=== PATIENT | male | born 1995 | race Caucasian/White ===

== ENCOUNTER 2018-03-24 22:31 | Emergency (ER) | payer BC, OTHER ==
[~2018-03-24] VITALS: Ht 182.9 cm; Wt 93.4 kg
[2018-03-24 22:43] VITALS: BP 115/64
== END 2018-03-25 01:02 | disposition home or self-care (01) ==
LOC: ER 22:34
DX: S62.334A Displaced fracture of neck of fourth metacarpal bone, right hand, initial encounter for closed fracture (principal); W21.01XA Struck by football, initial encounter; Y93.66 Activity, soccer; Y99.8 Other external cause status; Y92.89 Other specified places as the place of occurrence of the external cause
CPT/HCPCS: 29125; 73130